=== PATIENT | female | born 1965 | race Caucasian/White ===

== ENCOUNTER → 2022-06-30 08:40 | Outpatient (BNVA) | payer OTHER, SELFPAY | PROVIDERS: PCP Family Medicine; Visit Provider Family Medicine | DX: E11.9 Type 2 diabetes mellitus without complications (principal); R13.10 Dysphagia, unspecified; F51.04 Psychophysiologic insomnia; R13.19 Other dysphagia | CPT/HCPCS: 80053; 80061; 82043; 83036; 83721; 85025; 88175 ==

== ENCOUNTER 2022-08-06 08:38 | Outpatient (CLI) | payer OTHER, SELFPAY ==
--- NOTE | 2022-08-06 09:30 | FL_ITS ---
WS: [id number] Modified barium swallow, 08/06/2022 Clinical Data: Difficulty swallowing, choking with food or liquids on occasion. Comparison: None. Fluoroscopy time: 1min [id number] # of spot films: Findings: The patient initiated the oral propulsion normally. There is no penetration or aspiration. There is n ormal flow of the barium through the hypopharynx. The patient ingested a barium tablet which moved no rmally from the oral cavity, into the pharynx and rapidly through the esophagus into the stomach. FL/FL barium swallow modifd [id number] Impression: Negative modified barium swallow.
--- NOTE | 2022-08-06 10:07 | MM_ITS ---
WS: [email or web address] BILATERAL SCREENING DIGITAL TOMOSYNTHESIS MAMMOGRAM WITH CAD HISTORY: screening mammogram COMPARISON: None available. Bilateral CC and MLO views with tomosynthesis and synthetic mammography submitted. Computer aided det ection analyzed. Breast composition: The breasts are heterogeneously dense, which may obscure small masses. No suspici ous masses, microcalcifications or architectural distortion. MM/[place] [id number] IMPRESSION: BI-RADS: 1-Negative FOLLOW UP: 1 Year Follow-up
--- NOTE | 2022-08-06 12:23 | MR_ITS ---
WS: [email or web address] MRI CERVICAL SPINE NONCONTRAST HISTORY: SPONDYLOSIS WITH RADICULOPATHY COMPARISON: None available. Technique: Multiplanar, multisequence noncontrast imaging of the cervical spine. Mild straightening and slight reversal normal cervical lordosis. Reversal centered at C4-5. Disc spac es are narrowed and desiccated, most significant at C4-5, C5-6 and C6-7. No acute fracture or marrow edema. Signal within the cervical cord is normal. Visualized posterior fossa is unremarkable. Craniocervical junction, C1 and C2 relationship, odontoid process and soft tissues are normal. C2-C3: Normal. C3-C4: Mild annular disc bulge and osteophytic ridging. No stenosis. C4-C5: Diffuse annular disc bulging with a central disc protrusion. Mild facet arthropathy. Very mild central and bilateral foraminal stenosis. C5-C6: Mild osteophytic ridging with a RIGHT paracentral disc osteophyte encroaching and deforming th e ventral thecal sac. Additional small bilateral foraminal osteophytes. Moderate central and bilatera l foraminal stenosis, due to osteophytes. C6-C7: Mild osteophytic ridging with a very tiny central disc protrusion. Mild central and bilateral foraminal stenosis. Mild facet arthritis. C7-T1: No stenosis. Paraspinal soft tissue are normal. MR/MR cervical spin wo con* [id number] IMPRESSION: 1. Mild reversal of the normal cervical lordosis centered at C4-5. 2. Moderate central and bilateral foraminal stenosis at C5-6. Due to a combina tion of disc and osteophyte disease. Moderate size RIGHT paracentral disc osteo phyte encroaching upon the RIGHT lateral thecal sac and proximal foramina. 3. Mild central and bilateral foraminal stenosis at C4-5 and C6-7.
--- NOTE | 2022-08-06 12:26 | MR_ITS ---
WS: [email or web address] MRI LUMBAR SPINE NONCONTRAST HISTORY: SPONDYLOSIS WITH RADICULOPATHY COMPARISON: None available. TECHNIQUE: Sagittal and axial multisequence imaging is submitted. Mild increase in thoracic kyphosis. Normal lumbar alignment with no compression fractures or marrow edema. Disc spaces and vertebral body heights are well-preserved. Conus terminates normally at L1-2 disc level. L1-L2: Normal. L2-L3: Normal. L3-L4: Mild annular disc bulge with a central disc protrusion. Moderate encroachment upon the subarti cular recesses and central thecal sac. Disc extends into the foramina bilaterally. There is disc cont acting bilaterally on the L3 and L4 nerve roots. Mild central and mild to moderate bilateral subartic ular recess and foraminal stenosis. L4-L5: Mild annular disc bulging encroaching upon the ventral thecal sac with a small central disc pr otrusion. Very mild central and subarticular recess encroachment. L5-S1: Large central to LEFT paracentral disc protrusion with deformity the ventral thecal sac and di splacement of the LEFT S1 nerve root. There is also mild contact but less displacement of the RIGHT S 1 nerve root. Mild bilateral foraminal narrowing. Mild facet joint arthritis. LEFT renal cyst 1.6 cm. MR/MR lumbar spine wo con* [id number] IMPRESSION: 1. Large central to LEFT paracentral disc protrusion at L5-S1 with significant deformity and displacement of the LEFT S1 nerve root and to a lesser extent th e RIGHT S1 nerve root. Mild bilateral foraminal stenosis. 2. Mild central with mild to moderate bilateral subarticular recess and forami nal stenosis at L2-3. There is disc contact on the L3 and L4 nerve roots bilate rally. 3. Very mild central and subarticular recess encroachment at L4-5.
== END 2022-08-06 08:39 | disposition home or self-care (01) ==
PROVIDERS: PCP Family Medicine; Referring Provider Family Medicine; Visit Provider General Practice
DX: Z12.39 Encounter for other screening for malignant neoplasm of breast (principal); M48.07 Spinal stenosis, lumbosacral region; M51.27 Other intervertebral disc displacement, lumbosacral region; M50.11 Cervical disc disorder with radiculopathy, high cervical region; M47.812 Spondylosis without myelopathy or radiculopathy, cervical region; M48.02 Spinal stenosis, cervical region; M25.78 Osteophyte, vertebrae; R13.10 Dysphagia, unspecified
CPT/HCPCS: 72141; 72148; 74230; 77063; 77067; 92611

== ENCOUNTER 2022-09-10 08:24 | Outpatient (CLI) | payer OTHER, SELFPAY ==
--- NOTE | 2022-09-10 10:15 | US_ITS ---
WS: [email or web address] ULTRASOUND PELVIS TECHNIQUE: Transvaginal. CLINICAL INFORMATION: history of transvaginal us LMP: : No. COMPARISON: None. FINDINGS: Uterus Orientation: Anteverted. Size: 7.5 x 3.1 x 3.7 cm Masses: Hypoechoic intramural uterine fibroid measuring 1.4 x 1.3 x 0.6 cm in the uterine fundus. Cervix: Incidental nabothian cysts. Endometrium: Normal. Endometrium thickness: 3.3 mm Adnexa: Normal. Right ovary size: 1.1 x 1.3 x 1.5 cm Left ovary size: 1.8 x 1.4 x 0.7 cm Free fluid: None. Other findings: None. US/US transvaginal [id number] IMPRESSION: 1. Hypoechoic uterine fibroid in the fundus measuring 1.4 x 1.3 x 0.6 cm 2. Normal endometrium measuring 3.3 mm. 3. Normal ovaries. 4. No free fluid in the cul-de-sac.
== END 2022-09-10 08:25 | disposition home or self-care (01) ==
PROVIDERS: PCP Family Medicine; Visit Provider Family Medicine
DX: Z86.018 Personal history of other benign neoplasm (principal); D25.9 Leiomyoma of uterus, unspecified
CPT/HCPCS: 76830

== ENCOUNTER → 2022-11-28 13:34 | Outpatient (BNVA) | payer OTHER, SELFPAY | PROVIDERS: PCP Family Medicine; Visit Provider Family Medicine | DX: E11.9 Type 2 diabetes mellitus without complications (principal) | CPT/HCPCS: 80053; 80061; 83036 ==